=== PATIENT | female | born 1950 | race Caucasian/White ===

== ENCOUNTER 2019-01-01 20:54 | Emergency (ER) | payer MEDICARE, MEDICAID ==
[~2019-01-01] VITALS: Ht 152.4 cm; Wt 65.9 kg
[2019-01-01 21:01] VITALS: BP 134/80
[2019-01-01] MEDS ORDERED: TRAZ-219 PO (21:11)
[2019-01-01] MEDS ORDERED: MORP60 PO (21:11)
[2019-01-01] MEDS ORDERED: LISI-660 PO (21:11)
[2019-01-01] MEDS ORDERED: DSS100 PO (21:11)
[2019-01-01] MEDS ORDERED: CHOL200059 PO (21:11)
[2019-01-01] MEDS ORDERED: TRAM50TA4 PO (21:11)
[2019-01-01] MEDS ORDERED: TOPI25 PO (21:11)
[2019-01-01] MEDS ORDERED: LORA10TA7 PO (21:11)
[2019-01-01] MEDS ORDERED: OS500 PO (21:11)
[2019-01-01] MEDS ORDERED: ATOR10TA84 PO (21:11)
[2019-01-01] MEDS ORDERED: DULO60CA44 PO (21:11)
[2019-01-01] MEDS ORDERED: GABA-533 PO (21:11)
[2019-01-01] MEDS ORDERED: SENN-176 PO (21:11)
[2019-01-01] MEDS ORDERED: BUPR150SR PO (21:11)
[2019-01-01] MEDS ORDERED: LEVO125 PO (21:11)
== END 2019-01-01 22:05 | disposition home or self-care (01) ==
LOC: EMS 20:56
DX: G89.29 Other chronic pain (principal); M79.7 Fibromyalgia; M40.203 Unspecified kyphosis, cervicothoracic region; E78.00 Pure hypercholesterolemia, unspecified; I10 Essential (primary) hypertension; E03.9 Hypothyroidism, unspecified; G43.909 Migraine, unspecified, not intractable, without status migrainosus; F17.210 Nicotine dependence, cigarettes, uncomplicated; Z76.0 Encounter for issue of repeat prescription; Z90.49 Acquired absence of other specified parts of digestive tract; Z90.89 Acquired absence of other organs; Z90.710 Acquired absence of both cervix and uterus; Z88.5 Allergy status to narcotic agent; Z79.899 Other long term (current) drug therapy